=== PATIENT | female | born 1995 | race African-American/Black ===

== ENCOUNTER 2020-07-01 13:52 | Emergency (ER) | payer OTHER ==
[2020-07-01 13:57] VITALS: BMI 26.9
[2020-07-01] MEDS ORDERED: ACETAMINOPHEN 500 MG TABLET (FP) PO ONE (15:09)
[2020-07-01] MEDS ORDERED: SODIUM CHLORIDE 0.9% 500 ML INFUS.BAG IV ONE (15:09)
[2020-07-01] MEDS ORDERED: ONDANSETRON 4 MG/2 ML VIAL IVPUSH ONE (15:09)
[2020-07-01 15:45] LABS: BASO % 0.7 % (0-2.0); EOS % 3.1 % (0-4.5); HEMATOCRIT 33.6 % (32.4-45.2); HEMOGLOBIN 11.4 GM/dL (10.7-15.3); LYMPH % 22.3 % (8-40); MCH 26.5 pg (25.7-33.7); MCHC 34.1 g/dl (32.0-36.0); MEAN CELL VOLUME 77.7 fl (80-96); MEAN PLT VOLUME 9.7 fl (7.5-11.1); MONO % 7.4 % (3.8-10.2); NEUT % 66.5 % (42.8-82.8); PLATELET COUNT 251 K/MM3 (134-434); RBC 4.32 M/mm3 (3.60-5.2); RDW 13.2 % (11.6-15.6); WHITE BLOOD COUNT 9.2 K/mm3 (4.0-10.0)
[2020-07-01 15:50] LABS: PH,URINE >= 9.0 (5.0-8.0); URINE APPEARANCE CLEAR; URINE BILIRUBIN NEGATIVE (NEGATIVE); URINE COLOR YELLOW; URINE GLUCOSE (UA) NEGATIVE (NEGATIVE); URINE KETONE NEGATIVE (NEGATIVE); URINE LEUK ESTERASE NEGATIVE (NEGATIVE); URINE NITRITE NEGATIVE (NEGATIVE); URINE PROTEIN NEGATIVE (NEGATIVE); URINE UROBILINOGEN 0.2 mg/dL (0.2-1.0)
[2020-07-01 16:07] LABS: POTASSIUM 4.3 mmol/L (3.5-5.1)
[2020-07-01 16:10] LABS: ALBUMIN 3.1 g/dl (3.4-5.0)
[2020-07-01 16:13] LABS: CREATININE 0.6 mg/dL (0.55-1.3)
[2020-07-01 16:14] LABS: BILIRUBIN,TOTAL 0.2 mg/dL (0.2-1); TOT PROT 6.6 g/dl (6.4-8.2)
[2020-07-01 18:15] VITALS: BP 103/70; PULSE 80; TEMP 98.3
[2020-07-01 18:51] LABS: PH,URINE 5.5 (5.0-8.0); URINE APPEARANCE CLEAR; URINE BILIRUBIN NEGATIVE (NEGATIVE); URINE COLOR YELLOW; URINE GLUCOSE (UA) NEGATIVE (NEGATIVE); URINE KETONE 1+ (NEGATIVE); URINE LEUK ESTERASE NEGATIVE (NEGATIVE); URINE NITRITE NEGATIVE (NEGATIVE); URINE PROTEIN NEGATIVE (NEGATIVE); URINE UROBILINOGEN 0.2 mg/dL (0.2-1.0)
== END 2020-07-01 20:10 | disposition home or self-care (01) ==
LOC: JER 13:52
DX: R07.81 Pleurodynia (principal)
CPT/HCPCS: 36415; 76705-TC; 76801-TC; 76817-TC; 80053; 81003; 83690; 85025; 99285-25